=== PATIENT | female | born 1970 | race Two or more races ===

== ENCOUNTER 2016-11-24 18:43 | Emergency (ER) | payer MEDICAID ==
[~2016-11-24] VITALS: Ht 147.3 cm; Wt 51.7 kg
[2016-11-24 19:16] VITALS: BP 115/74
[2016-11-25] MEDS ORDERED: HYDROcodone-ACET 10/325MG TAB PO ONE (01:30)
== END 2016-11-25 01:25 | disposition home or self-care (01) ==
LOC: ER 18:48
DX: N63 Unspecified lump in breast (principal)
CPT/HCPCS: 76642

== ENCOUNTER 2023-01-17 02:53 | Inpatient (IN) | payer MEDICAID ==
[~2023-01-17] VITALS: Ht 149.9 cm; Wt 51.2 kg
[2023-01-17] MEDS ORDERED: KETOROLAC TROMETH 60MG/2ML VIAL IM ONE (04:00)
[2023-01-17 04:07] LABS: Basophils # (auto) 0.1 10 ^3/uL (0-0.2); Basophils % (auto) 0.6 % (0.0-2.0); Eosinophils # (auto) 0.1 10 ^3/uL (0-0.8); Eosinophils % (auto) 0.5 % (0.0-7.0); Hematocrit 39.5 % (36.0-46.0); Hemoglobin 13.5 g/dL (12.2-16.2); Lymphocytes # (auto) 2.7 10 ^3/uL (0.4-5.4); Lymphocytes % (auto) 20.2 % (10.0-50.0); Mean Corpuscular Hemoglobin 31.3 pg (28.0-32.0); Mean Corpuscular Hgb Conc. 34.3 g/dL (32.0-36.0); Mean Corpuscular Volume 91.5 fL (80.0-100.0); Monocytes # (auto) 0.6 10 ^3/uL (0-1.3); Monocytes % (auto) 4.2 % (0.0-12.0); Neutrophils # (auto) 10.1 10 ^3/uL (1.6-8.6); Neutrophils % (auto) 74.5 % (37.0-80.0); Red Blood Cells 4.32 10^6/uL (4.0-5.20); Red Cell Distribution Width 12.5 % (11.8-14.3); White Blood Cell 13.6 10^3/uL (4.4-10.8)
[2023-01-17 04:30] LABS: Albumin 4.4 g/dL (3.2-4.8); Alkaline Phosphatase 114 U/L (46-116); Anion Gap 4.8 (5-15); Aspartate Aminotransferase 17 U/L (13-40); BUN/Creatinine Ratio 15.7 (10.0-20.0); Bilirubin, Total 0.4 mg/dL (0.2-1.0); Blood Urea Nitrogen 11 mg/dL (9-23); Calcium 9.5 mg/dL (8.5-10.1); Carbon Dioxide 26.2 mmol/L (20-30); Chloride 106 mmol/L (98-107); Glucose 143 mg/dL (74-106); Lipase 45 U/L (12-53); Potassium 4.1 mmol/L (3.5-5.1); Sodium 137 mmol/L (136-145); Total Protein 7.4 g/dL (5.7-8.2)
[2023-01-17 04:36] LABS: Alanine Aminotransferase < 9 U/L (7-40)
[2023-01-17 04:52] LABS: Urine Bacteria FEW /hpf (None Seen); Urine Blood 3+ /uL (Negative); Urine Budding Yeast OCCASIONAL /hpf (None Seen); Urine Clarity CLOUDY (Clear); Urine Color Yellow (Yellow); Urine Hyaline Cast MOD /lpf (0 - 2); Urine Mucus FEW (None Seen); Urine Protein, UAD 1+ (Negative); Urine Specific Gravity 1.038 (1.001-1.035); Urine Sperm PRESENT /hpf (None Seen); Urine WBC 11 /hpf (0 - 5)
[2023-01-17] MEDS ORDERED: SODIUM CHLORIDE 0.9% 1,000 ML IV ONE (07:00)
[2023-01-17] MEDS ORDERED: cefTRIAXone 1GM/50ML D5W 50 ML IV ONE (09:45)
[2023-01-17] MEDS ORDERED: ONDANSETRON HCL 4 MG/2 ML VIAL IV ONE (09:45)
[2023-01-17] MEDS ORDERED: MORPHINE SULFATE INJ 2 MG/ml SYRG IV ONE (09:45)
[2023-01-17] MEDS: SODIUM CHLORIDE 0.9% 1,000 ML IV SCH ×2 (09:53→19:17)
[2023-01-17] MEDS ORDERED: FUROSEMIDE 20 MG/2 ML VIAL IV ONE (11:30)
[2023-01-17] MEDS ORDERED: ONDANSETRON HCL 4 MG/2 ML VIAL IV PRN ×2 (15:00→23:45)
[2023-01-17] MEDS ORDERED: KETOROLAC TROMETH 30 MG/ML 1ML VIAL IV PRN (16:00)
[2023-01-17 22:38] LABS: Amphetamine Screen, Urine Neg (NEGATIVE); Barbiturate Scree,Urine Neg (NEGATIVE); Benzodiazephine Screen, Urine Neg (NEGATIVE); Cannabinoid Screen, Urine Neg (NEGATIVE); Cocaine Screen, Urine Neg (NEGATIVE); Opiate Scree,Urine Neg (NEGATIVE); Phencyclidine Screen, Urine Neg (NEGATIVE)
[2023-01-17 23:40] VITALS: O2SAT 96
[2023-01-18] MEDS: KETOROLAC TROMETH 30 MG/ML 1ML VIAL IV PRN ×2 (00:06→11:16)
[2023-01-18] MEDS ORDERED: ONDANSETRON HCL 4 MG/2 ML VIAL IV PRN (00:15)
[2023-01-18] MEDS: SODIUM CHLORIDE 0.9% 1,000 ML IV SCH ×2 (05:55→16:20)
[2023-01-18 07:30] VITALS: PULSE 83; RESP 20; O2SAT 97
[2023-01-18 08:30] LABS: Basophils # (auto) 0 10 ^3/uL (0-0.2); Basophils % (auto) 0.6 % (0.0-2.0); Eosinophils # (auto) 0.1 10 ^3/uL (0-0.8); Hematocrit 35.2 % (36.0-46.0); Hemoglobin 12.2 g/dL (12.2-16.2); Lymphocytes # (auto) 2.5 10 ^3/uL (0.4-5.4); Lymphocytes % (auto) 28.2 % (10.0-50.0); Mean Corpuscular Hemoglobin 32.1 pg (28.0-32.0); Mean Corpuscular Hgb Conc. 34.6 g/dL (32.0-36.0); Mean Corpuscular Volume 92.8 fL (80.0-100.0); Monocytes # (auto) 0.5 10 ^3/uL (0-1.3); Monocytes % (auto) 5.7 % (0.0-12.0); Neutrophils # (auto) 5.7 10 ^3/uL (1.6-8.6); Neutrophils % (auto) 64.5 % (37.0-80.0); Nucleated Red Blood Cells % 0.1 %; Red Cell Distribution Width 12.6 % (11.8-14.3); White Blood Cell 8.8 10^3/uL (4.4-10.8)
[2023-01-18 08:37] LABS: Chloride 110 mmol/L (98-107); Potassium 3.7 mmol/L (3.5-5.1); Sodium 142 mmol/L (136-145)
[2023-01-18 08:38] LABS: Anion Gap 6.6 (5-15); Calcium 8.5 mg/dL (8.5-10.1); Carbon Dioxide 25.4 mmol/L (20-30)
[2023-01-18 08:43] LABS: BUN/Creatinine Ratio 15.9 (10.0-20.0); Blood Urea Nitrogen 10 mg/dL (9-23); Glucose 102 mg/dL (74-106)
[2023-01-18] MEDS: DOCUSATE SOD 100 MG CAP PO SCH (12:07)
[2023-01-18] MEDS: cefTRIAXone 1GM/50ML D5W 50 ML IV SCH (12:07)
[2023-01-18 12:59] VITALS: BP 120/68; PULSE 77; RESP 18; TEMP 98.4; O2SAT 96
[2023-01-18] MEDS ORDERED: ASPI-628 PO (13:06)
[2023-01-18] MEDS ORDERED: SERT-206 PO (13:06)
[2023-01-18] MEDS ORDERED: PANTOPRAZOLE 40 MG TAB PO ONE (14:00)
[2023-01-18] MEDS ORDERED: IBUPROFEN 400 MG TAB PO PRN (14:00)
[2023-01-18] MEDS ORDERED: MANNITOL FTV 25% 12.5 GM/50 ML 50 ML IV ONE (15:00)
[2023-01-18] MEDS: ACETAMINOPHEN 325 MG TAB PO PRN (15:04)
[2023-01-18 17:00] VITALS: BP 106/61; PULSE 70; RESP 16; TEMP 98.2; O2SAT 96
[2023-01-18] MEDS: TAMSULOSIN HYDROCHLORIDE 0.4 MG CAP PO SCH (18:22)
[2023-01-18 20:00] VITALS: BP 116/68; PULSE 77; RESP 16; TEMP 95.5; O2SAT 96
[2023-01-18 22:00] VITALS: BP 116/68; PULSE 77; RESP 16; TEMP 97.5; O2SAT 96
[2023-01-19] MEDS: SODIUM CHLORIDE 0.9% 1,000 ML IV SCH ×3 (01:54→17:42)
[2023-01-19] MEDS: ACETAMINOPHEN 325 MG TAB PO PRN (02:01)
[2023-01-19 05:00] VITALS: BP 99/63; PULSE 79; RESP 16; TEMP 98.1; O2SAT 96
[2023-01-19] MEDS: KETOROLAC TROMETH 30 MG/ML 1ML VIAL IV PRN (07:54)
[2023-01-19 08:28] VITALS: BP 141/83; PULSE 91; RESP 19; TEMP 98.4; O2SAT 98
[2023-01-19 09:17] LABS: Basophils # (auto) 0.1 10 ^3/uL (0-0.2); Basophils % (auto) 0.9 % (0.0-2.0); Eosinophils # (auto) 0.1 10 ^3/uL (0-0.8); Eosinophils % (auto) 1.5 % (0.0-7.0); Hematocrit 37.8 % (36.0-46.0); Hemoglobin 13.2 g/dL (12.2-16.2); Lymphocytes # (auto) 2.3 10 ^3/uL (0.4-5.4); Lymphocytes % (auto) 27.9 % (10.0-50.0); Mean Corpuscular Hemoglobin 32.1 pg (28.0-32.0); Mean Corpuscular Hgb Conc. 34.8 g/dL (32.0-36.0); Mean Corpuscular Volume 92.1 fL (80.0-100.0); Monocytes # (auto) 0.4 10 ^3/uL (0-1.3); Monocytes % (auto) 4.5 % (0.0-12.0); Neutrophils # (auto) 5.4 10 ^3/uL (1.6-8.6); Neutrophils % (auto) 65.2 % (37.0-80.0); Nucleated Red Blood Cells % 0.1 %; Red Cell Distribution Width 12.4 % (11.8-14.3); White Blood Cell 8.3 10^3/uL (4.4-10.8)
[2023-01-19 09:44] LABS: Anion Gap 6.6 (5-15); Carbon Dioxide 22.4 mmol/L (20-30); Chloride 111 mmol/L (98-107); Potassium 3.9 mmol/L (3.5-5.1); Sodium 140 mmol/L (136-145)
[2023-01-19 09:50] LABS: BUN/Creatinine Ratio 18.9 (10.0-20.0); Blood Urea Nitrogen 10 mg/dL (9-23); Glucose 118 mg/dL (74-106)
[2023-01-19] MEDS: PANTOPRAZOLE 40 MG TAB PO SCH (10:01)
[2023-01-19] MEDS: cefTRIAXone 1GM/50ML D5W 50 ML IV SCH (10:01)
[2023-01-19] MEDS: DOCUSATE SOD 100 MG CAP PO SCH (10:01)
[2023-01-19 12:51] VITALS: BP 133/84; PULSE 79; RESP 17; TEMP 97.9; O2SAT 95
[2023-01-19 17:01] VITALS: BP 147/76; PULSE 107; RESP 16; TEMP 98.2; O2SAT 99
[2023-01-19] MEDS: TAMSULOSIN HYDROCHLORIDE 0.4 MG CAP PO SCH (17:41)
[2023-01-19 20:00] VITALS: BP 127/81; PULSE 71; RESP 17; TEMP 98.3; O2SAT 97
[2023-01-19 22:00] VITALS: BP_SYST 126; BP_SYST 129; BP_DIAS 57; BP_DIAS 81; PULSE 70; PULSE 71; RESP 17; RESP 19; TEMP 98.2; TEMP 98.3; O2SAT 97; O2SAT 99
[2023-01-20 05:00] VITALS: BP 139/77; PULSE 89; RESP 18; TEMP 97.7; O2SAT 97
[2023-01-20] MEDS: SODIUM CHLORIDE 0.9% 1,000 ML IV SCH ×2 (06:16→09:15)
[2023-01-20 08:20] VITALS: BP 114/72; PULSE 76; RESP 18; TEMP 98
[2023-01-20 09:00] VITALS: BP 114/72; PULSE 76; RESP 18; TEMP 98; O2SAT 97
[2023-01-20] MEDS: PANTOPRAZOLE 40 MG TAB PO SCH (09:50)
[2023-01-20] MEDS: DOCUSATE SOD 100 MG CAP PO SCH (09:51)
[2023-01-20] MEDS ORDERED: cefTRIAXone 1GM/50ML D5W 50 ML IV SCH (10:00)
[2023-01-20] MEDS ORDERED: NITR-52 PO (10:04)
[2023-01-20 14:47] VITALS: BP 114/56; PULSE 73; RESP 20; TEMP 98.1; O2SAT 98
== END 2023-01-20 15:30 | disposition home or self-care (01) | DRG 463 ==
LOC: ER 02:53 → OVERFLOW 15:00 → UNDODISIN 21:36 → CENTRAL 01-18 10:32
PROVIDERS: ADMIT Internal Medicine; ATTEND Student in an Organized Health Care Education/Training Program
DX: N13.6 Pyonephrosis (principal); F41.9 Anxiety disorder, unspecified; K59.00 Constipation, unspecified; R00.2 Palpitations; R31.29 Other microscopic hematuria; Z87.442 Personal history of urinary calculi; Z83.3 Family history of diabetes mellitus; Z88.0 Allergy status to penicillin
CPT/HCPCS: 36415; 71045; 74176; 80048; 80053; 80307; 81001; 83690; 85025; 87086; 96361; 96365; 96372; 96375; G0378; J0696; J1885; J2405